=== PATIENT | male | born 1965 | race Caucasian/White ===

== ENCOUNTER 2016-11-21 06:59 | Day surgery (SDC) | payer BC ==
[2016-11-20 10:17] LABS: HEMATOCRIT 42.8 % (40.0-51.0); HEMOGLOBIN 14.4 g/dL (13.6-17.8)
[2016-11-20 10:26] LABS: BUN (BLOOD UREA NITROGEN) 19 MG/DL (6-23); CALCIUM, SERUM 9.1 MG/DL (8.5-10.4); CHLORIDE, SERUM 109 MMOL/L (96-112); CO2 (CARBON DIOXIDE) 30 MMOL/L (24-34); CREATININE 0.97 MG/DL (0.70-1.30); GFR AFRICAN AMERICAN 103 ML/MIN (>=60); GFR NON AFRICAN AMERICAN 89 ML/MIN (>=60); GLUCOSE, SERUM 99 MG/DL (60-99); POTASSIUM, SERUM 4.3 MMOL/L (3.5-5.3); SODIUM, SERUM 140 MMOL/L (135-148)
--- NOTE | ~2016-11-21 | OP ---
Record Of Operation [facility] [address] [place]. [address] NAME: OLIVE KRISHNAN : 61 STATUS : [facility]#: [id number] AGE: 51 ADM/REG DATE : 11/21/16 MR#: [id number] REPORT SERV DATE: 11/22/16 DICTATED BY: CECILIA CORNELL DATE: 11/21/16 REPORT STATUS : Draft TRANSCRIBED BY: MODL DATE: 11/21/16 DATE OF PROCEDURE: 11/21/2016 PREOPERATIVE DIAGNOSES: 1. Right inguinal hernia. 2. Umbilical hernia. POSTOPERATIVE DIAGNOSES: 1. Right inguinal hernia. 2. Umbilical hernia. PROCEDURE: 1. Laparoscopic right inguinal hernia repair. 2. Umbilical hernia repair. SURGEON: Cecilia Cornell M.D. CHIEF RESIDENT: Rodrigo Vicente MD ANESTHETIC: General with local. IV FLUIDS: Approximately 1 L. ESTIMATED BLOOD LOSS: 10 mL. COMPLICATION: None known. COUNTS: Correct. SPECIMEN: None. DESCRIPTION OF PROCEDURE: The patient was brought to the operating room and placed supine on the operating table. Anesthetic was administered and endotracheal intubation achieved. The abdomen was prepped and draped in a sterile fashion. An incision was made just to the right and below the umbilicus in a vertical fashion. This was carried down to the level of the fascia, which was incised through the anterior fascia and the rectus swept laterally. Dissecting balloon was inserted and inflated to develop the preperitoneal space. This was withdrawn and balloon trocar inserted and insufflation achieved. The laparoscope was inserted into the preperitoneal space and visualized. Under laparoscopic visualization, two 5-mm trocars were placed after local anesthetic administered one just 1 cm superior to the pubic symphysis and one just inferior aspect of the 12 mm balloon trocar. Next, the anterolateral wall was dissected to identify the transversalis out to the ASIS on the right. This was carried medially until the hernia sac was identified coming up towards the external ring. The sac was dissected free from the surrounding tissue as well as underlying structures. The cord and its contents were identified and dissected free from the hernia sac. Care was taken not to injure the vas or its vasculature. The Prolene mesh was cut to Record Of Operation [facility] [address] [facility] [place]. [address] NAME: OLIVE KRISHNAN DOB: [birth year] STATUS : [facility] PAT#: [id number] AGE: 51 ADM/REG DATE : 11/21/16 MR#: [id number] REPORT SERV DATE: 11/22/16 DICTATED BY: CECILIA CORNELL DATE: 11/21/16 REPORT STATUS : Draft TRANSCRIBED BY: EILEEN DATE: 11/21/16 fit and inserted through the periumbilical trocar. This was positioned to encircle the cord contents and recreated the ring. It was sutured in place with Protac with all the tacks being above the pubis and ilioinguinal ligament. The cephalad aspect of the mesh was secured to the anterior abdominal wall. Adequate coverage was achieved of the hernia defect and the insufflation was released. During this, pneumoperitoneum had been achieved as well. Next, we turned our attention to the umbilical hernia. This periumbilical incision was carried along the right side of the umbilicus and just above the umbilicus in the midline. Electrocautery was used to take this incision down to the level of fascia through the subcutaneous fat. Next, the umbilicus was encircled and the umbilicus was dissected off the underlying sac at the level of the dermis. The hernia was repaired primarily with interrupted 0 Nurolon in a transverse fashion. The anterior fascia defects from the inguinal hernia repair were closed with 0 Vicryl in a [id number] fashion. Irrigation was conducted. The umbilicus tacked to the underlying fascia with 3-0 Vicryl. The incision was closed with Monocryl in a subcuticular fashion as well as 5-mm incisions were closed in similar fashion. Sterile Band-Aids were applied and the patient was extubated and transferred to recovery room in stable condition. DICTATED BY: Rodrigo Vicente MD ND/EILEEN Cecilia Cornell M.D. / [id number] CC: William Aguilar J. Michael
[~2016-11-21 06:59] MED LIST: PROZAC40 MG PO
== END 2016-11-21 17:18 | disposition home or self-care (01) ==
LOC: SDC 06:59
PROVIDERS: Specialist
PROC: 0YU54JZ Supplement Right Inguinal Region with Synthetic Substitute, Percutaneous Endoscopic Approach (ICD-10-PCS; principal; 2016-11-21 08:45)
PROC: 0WQF0ZZ Repair Abdominal Wall, Open Approach (ICD-10-PCS; 2016-11-21 08:45)
DX: K40.90 Unilateral inguinal hernia, without obstruction or gangrene, not specified as recurrent (principal); K42.9 Umbilical hernia without obstruction or gangrene; G47.33 Obstructive sleep apnea (adult) (pediatric); F41.9 Anxiety disorder, unspecified; Z79.899 Other long term (current) drug therapy; Z87.891 Personal history of nicotine dependence; Z90.49 Acquired absence of other specified parts of digestive tract; Z90.89 Acquired absence of other organs; Z98.890 Other specified postprocedural states
CPT/HCPCS: 80048; 85014; 85018; 87641; 93005; A9270-GY; C1726; C1727; C1781; J0690; J1885; J2250; J2405; J2710; J3010